=== PATIENT | female | born 1965 | race American Indian/Alaskan Native ===

== ENCOUNTER 2019-09-14 08:14 | Outpatient (CLI) | payer OTHER | END 2019-09-14 08:15 | disposition home or self-care (01) | LOC: LABHHL 08:14 | PROVIDERS: ATTEND Surgery | DX: N60.02 Solitary cyst of left breast (principal) | CPT/HCPCS: 88112 ==

== ENCOUNTER 2020-08-28 07:59 | Outpatient (CLI) | payer OTHER | END 2020-08-28 08:00 | disposition home or self-care (01) | LOC: SPVWC 07:59 | PROVIDERS: ATTEND Surgery | DX: Z12.31 Encounter for screening mammogram for malignant neoplasm of breast (principal) | CPT/HCPCS: 77063; 77067 ==